=== PATIENT | male | born 1965 | race Caucasian/White ===

== ENCOUNTER 2019-06-11 16:27 | Emergency (ER) | payer OTHER ==
[2019-06-11] MEDS ORDERED: ACETAMINOPHEN 325 MG TABLET PO ONE (16:52)
[2019-06-11] MEDS ORDERED: ONDANSETRON 4 MG TAB.RAPDIS PO ONE (16:52)
--- NOTE | 2019-06-11 16:52 | ER Document Report ---
ED Medical Screen (RME) - General Chief Complaint: Dizziness Stated Complaint: DIZZINESS,HEADACHE Time Seen by Provider: 06/11/19 16:45 Mode of Arrival: Wheelchair Information source: Patient Notes: 53-year-old male presented to ED for complaint of dizziness and lightheaded and nauseous today. He states he had a headache for 4 days. states he fell and hit his head about a month ago and had helio but never had a CT at that time. She states she is he has felt bad for about 2 weeks and has not gone to the doctor. Patient has a history of high cholesterol no other medical history he is a former smoker drinks weekly no illicit drugs and is a former lives with his family. Patient is alert and oriented at this time he is answering questions appropriately but he states he is very dizzy and nauseated. I have greeted and performed a rapid initial assessment of this patient. A comprehensive ED assessment and evaluation of the patient, analysis of test results and completion of medical decision making process will be conducted by an additional ED providers. Physical Exam - Vital signs Vitals: Pulse Resp BP Pulse Ox 58 L 18 133/90 H 100 06/11/19 16:32 06/11/19 16:32 06/11/19 16:32 06/11/19 16:32 Course - Vital Signs Vital signs: Temp Pulse Resp BP Pulse Ox 58 L 18 133/90 H 100 06/11/19 16:32 06/11/19 16:32 06/11/19 16:32 06/11/19 16:32
[2019-06-11 18:14] LABS: ABSOLUTE EOSINOPHILS # (AUTO) 0.1 10^3/uL (0.0-0.6); ABSOLUTE LYMPHOCYTES (AUTO) 1.1 10^3/uL (0.5-4.7); ABSOLUTE MONOCYTES (AUTO) 0.4 10^3/uL (0.1-1.4); ABSOLUTE NEUT (AUTO) 4.3 10^3/uL (1.7-8.2); BASOPHILS % (AUTO) 0.6 % (0-2); EOSINOPHILS % (AUTO) 1.8 % (0-6); HEMATOCRIT 43.5 % (37.9-51.0); HEMOGLOBIN 14.8 g/dL (13.5-17.0); LYMPHOCYTES % (AUTO) 17.7 % (13-45); MEAN CORPUSCULAR HEMOGLOBIN 30.8 pg (27.0-33.4); MEAN CORPUSCULAR HGB CONC 34.1 g/dL (32.0-36.0); MEAN CORPUSCULAR VOLUME 91 fl (80-97); MONOCYTES % (AUTO) 7.5 % (3-13); PLATELET COUNT 209 10^3/uL (150-450); RED BLOOD COUNT 4.81 10^6/uL (4.35-5.55); RED CELL DISTRIBUTION WIDTH 13.5 % (11.5-14.0); SEGMENTED NEUTROPHILS % (AUTO) 72.4 % (42-78); TOTAL CELLS COUNTED % (AUTO) 100 %
[2019-06-11 18:21] LABS: INTERNATIONAL RATION (INR) 0.98; PARTIAL THROMBOPLASTIN TIME 29.6 SEC (23.5-35.8)
--- NOTE | 2019-06-11 18:35 | RADIOLOGY REPORT (SQ) ---
EXAM DESCRIPTION: CT HEAD WITHOUT COMPLETED DATE/TIME: 06/11/2019 6:08 pm REASON FOR STUDY: headache x4 days dizziness today COMPARISON: None. TECHNIQUE: Axial images acquired through the brain without intravenous contrast. Images reviewed wi th bone, brain and subdural windows. Images stored on PACS. All CT scanners at this facility use dose modulation, iterative reconstruction, and/or weight based d osing when appropriate to reduce radiation dose to as low as reasonably achievable (ALARA). [facility]: Dose Right [facility]: CareDose [facility]: Dose Right [facility]: Teradose 4D [facility]: [employer] RADIATION DOSE: CT Rad equipment meets quality standard of care and radiation dose reduction techniq ues were employed. CTDIvol: 53.2 mGy. DLP: 1017 mGy-cm. mGy. LIMITATIONS: None. FINDINGS: VENTRICLES: Normal size and contour. CEREBRUM: No mass effect. No hemorrhage. No midline shift. Normal dowd/white matter differentiatio n. No evidence for acute territorial infarction. CEREBELLUM: No mass effect. No hemorrhage. No alteration of density. No evidence for acute infarct ion. EXTRAAXIAL SPACES: No fluid collections. ORBITS AND GLOBE: Symmetrical contour of the globes. CALVARIUM: No depressed skull fracture. PARANASAL SINUSES: No air-fluid level. SOFT TISSUES: No hematoma. IMPRESSION: NO ACUTE INTRACRANIAL IMAGING FINDINGS. EVIDENCE OF ACUTE STROKE: NO. COMMENT: Quality ID # [id number]: Final reports with documentation of one or more dose reduction techniques (e.g., Automated exposure control, adjustment of the mA and/or kV according to patient size, use of iterative reconstruction technique) TECHNICAL DOCUMENTATION: JOB ID: [id number] 2010 [employer]- All Rights Reserved Reading location - IP/workstation name: [email or web address]
[2019-06-11 18:36] LABS: ALBUMIN 4.4 g/dL (3.5-5.0); ALKALINE PHOSPHATASE 92 U/L (38-126); ANION GAP 8 (5-19); ASPARTATE AMINO TRANSFERASE 26 U/L (17-59); BILIRUBIN,DIRECT 0.1 mg/dL (0.0-0.4); BILIRUBIN,TOTAL 0.5 mg/dL (0.2-1.3); BLOOD UREA NITROGEN 19 mg/dL (7-20); CALCIUM 9.3 mg/dL (8.4-10.2); CARBON DIOXIDE 28 mmol/L (22-30); CHLORIDE 101 mmol/L (98-107); CREATINE KINASE 169 U/L (55-170); GLUCOSE 107 mg/dL (75-110); POTASSIUM 4.5 mmol/L (3.6-5.0); TOTAL PROTEIN 7.4 g/dL (6.3-8.2)
[2019-06-11 18:44] LABS: CREATINE KINASE MB 2.51 ng/mL (<4.55)
[2019-06-11 18:47] LABS: TROPONIN I < 0.012 ng/mL
[2019-06-11] MEDS ORDERED: DIPHENHYDRAMINE HCL 50 MG/ML VIAL IV ONE (19:02)
[2019-06-11] MEDS ORDERED: NORMAL SALINE 1000 ML 1,000 ML IV ONE (19:02)
[2019-06-11] MEDS ORDERED: PROCHLORPERAZINE EDISYLATE INJ 10 MG/2 ML VIAL IV ONE (19:02)
[2019-06-11 20:06] LABS: APPEARANCE,URINE CLEAR; BILIRUBIN,URINE NEGATIVE (NEGATIVE); COLOR,URINE STRAW; GLUCOSE, URINE NEGATIVE (NEGATIVE); KETONES,URINE NEGATIVE (NEGATIVE); LEUKOCYTE ESTERASE,URINE NEGATIVE (NEGATIVE); NITRITE,URINE NEGATIVE (NEGATIVE); PROTEIN,URINE NEGATIVE (NEGATIVE); URINE SPECIFIC GRAVITY 1.006; UROBILINOGEN,URINE NEGATIVE mg/dL (<2.0)
[2019-06-11] MEDS ORDERED: ONDANSETRON ODT 4 MG TAB (6 TAB/ER DISP) PO PRN (21:02)
[2019-06-11 21:24] VITALS: BP 148/79
--- NOTE | 2019-06-12 02:23 | ER Document Report ---
Entered by PRETTY BEYER SCRIBE 06/11/19 190 Acting as scribe for:ASHLEY HOOPER DO ED General - General Chief Complaint: Dizziness Stated Complaint: DIZZINESS,HEADACHE Time Seen by Provider: 06/11/19 16:45 Primary Care Provider: JOSSIE GALLEGOS MD [Primary Care Provider] - Follow up in 3-5 days Mode of Arrival: Wheelchair Information source: Patient, Relative Notes: Patient is a 53-year-old male who presents to the emergency department today with complaints of dizziness, nausea, and a headache. Patient states that about a month ago he fell and hit his head which required helio and he is unsure if this could be related to his symptoms today. Patient states he has just generally "felt bad" for the last 2 weeks. Patient states the headache has been present for 4 days. Patient states he gets headaches every once in a while but they never last this long. 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 Patient denies any cough or diarrhea. 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 Lives with: Family Family History: Reviewed & Not Pertinent Patient has suicidal ideation: No Patient has homicidal ideation: No - Past Medical History Cardiac Medical History: Reports: Hx Hypercholesterolemia Surgical Hx: Negative Review of Systems - Review of Systems Constitutional: No symptoms reported EENT: No symptoms reported Cardiovascular: See HPI, Dizziness, Lightheaded Respiratory: No symptoms reported Gastrointestinal: See HPI, Nausea Genitourinary: No symptoms reported Male Genitourinary: No symptoms reported Musculoskeletal: No symptoms reported Skin: No symptoms reported Hematologic/Lymphatic: No symptoms reported Neurological/Psychological: See HPI, Headaches -: Yes All other systems reviewed and negative Physical Exam - Vital signs Vitals: Pulse Resp BP Pulse Ox 58 L 18 133/90 H 100 06/11/19 16:32 06/11/19 16:32 06/11/19 16:32 06/11/19 16:32 - Notes Notes: Physical Exam: General: Alert, appears well. HEENT: Normocephalic. Atraumatic. PERRL. Extraocular movements intact. Oropharynx clear. Dry oral mucosa. Neck: Supple. Non-tender. Respiratory: No respiratory distress. Clear and equal breath sounds bilaterally. Cardiovascular: Regular rate and rhythm. Abdominal: Normal Inspection. Non-tender. No distension. Normal Bowel Sounds. Back: No gross abnormalities. Extremities: Moves all four extremities. Upper extremities: Normal inspection. Normal ROM. Lower extremities: Normal inspection. No edema. Normal ROM. Neurological: Normal cognition. AAOx4. Normal speech. Negative Romberg sign. Psychological: Normal affect. Normal Mood. Skin: Warm. Dry. Normal color. Course - Re-evaluation Re-evalutation: 06/11/19 21:19 Patient states he feels much better, wishes to be discharged. 06/12/19 02:22 Patient is a 53-year-old male who comes in for a headache and some dizziness that is since resolved. Patient still with headache. Completely resolved after medications and fluids. Decreased p.o. intake. Has had about a month ago and has had intermittent headaches worse tonight. CT head negative. Patient is neurovascular intact. Negative Romberg. Appears well feels better and wants to go home. Return if any worsening or concerning symptoms. Stable for discharge. Understands agrees to plan. Follow-up with PMD this week. - Vital Signs Vital signs: Temp Pulse Resp BP Pulse Ox 98.1 F 88 14 148/79 H 97 06/11/19 17:44 06/11/19 21:22 06/11/19 21:22 06/11/19 21:22 06/11/19 21:22 - Laboratory Result Diagrams: 06/11/19 17:55 06/11/19 17:55 Laboratory results interpreted by me: 06/11/19 17:55 Sodium 136.9 L - Diagnostic Test Radiology reviewed: Reports reviewed Discharge - Discharge Clinical Impression: Headache Qualifiers: Headache type: unspecified Headache chronicity pattern: acute headache Intractability: not intractable Qualified Code(s): R51 - Headache Condition: Stable Disposition: HOME, SELF-CARE Instructions: Headache ([facility]) Prescriptions: Prochlorperazine Maleate [Compazine 10 mg Tablet] 10 mg PO ASDIR PRN #10 tablet PRN Reason: Referrals: JOSSIE GALLEGOS MD [Primary Care Provider] - Follow up in 3-5 days I personally performed the services described in the documentation, reviewed and edited the documentation which was dictated to the scribe in my presence, and it accurately records my words and actions.
--- NOTE | 2019-06-15 07:44 | EKG REPORT ---
SEVERITY:- NORMAL ECG - SINUS RHYTHM : Confirmed by: Domingo Gallego MD 15-Jun-2019 07:44:10
== END 2019-06-11 21:22 | disposition home or self-care (01) ==
LOC: ER 16:27
DX: R42 Dizziness and giddiness (principal); R51 Headache; R11.0 Nausea; E78.00 Pure hypercholesterolemia, unspecified
CPT/HCPCS: 99284; 96361; 96374; 96375; 36415; 87086; 82553; 82962; 82550; 85025; 85610; 85730; 80053; 81001; 84484; 70450; J1200; S0119; J0780; J7030; 93005; 93010